=== PATIENT | female | born 1970 | race Caucasian/White ===

== ENCOUNTER → 2016-08-21 | Outpatient (CLI) | payer BC ==
[~2016-08-21] MED LIST: BNTUNK PO; SERT-234 PO; SPIR100T PO
--- NOTE | 2016-08-21 14:55 | MAMMOGRAPHY REPORT ---
ULTRASOUND OF RIGHT BREAST: 08/21/2016 CLINICAL HISTORY: 45-year-old woman with a palpable lump in the 12:00 to 1:00 right breast, thought t o correlate with a complicated cyst on ultrasound. She presents for follow-up. COMPARISON: Comparison is made to exams dated: 02/23/2016 mammogram, 02/23/2016 ultrasound, 6 mammogram, 03/17/2014 mammogram, 05/24/2011 mammogram, and 03/08/2010 ultrasound - [facility]. FINDINGS: Targeted ultrasound was performed in the 1:00 right breast in the area of palpable lump po inted out by the patient. The patient reports she can still feel the lump and it has not significant ly changed in size. On palpation, there is still a discrete BB sized mass. On ultrasound in the 1:0 0 right breast, 1 cm from the nipple, there is an oval parallel circumscribed hypoechoic solid versus cystic mass with thin internal echogenic septa and no significant increased vascularity. It measure s 3.1 x 2.1 x 2.7 mm. This has not significantly changed compared to the prior ultrasound at which t addie it measured 3.7 x 2.1 x 2.7 mm. This could represent a complicated cyst or possibly a lymph node . Given the stability and sonographic appearance it is most likely benign. However, another six-mon th follow-up targeted ultrasound is recommended to ensure at least one year of stability. Bilateral screening mammography will also be due at that time. IMPRESSION: ACR-BI-RADS CATEGORY 3: PROBABLY BENIGN - FOLLOW-UP RECOMMENDED The benign-appearing oval circumscribed hypoechoic solid versus cystic 3 mm palpable mass in the 1:00 right breast has not significantly changed in size or appearance since February 2016 and is most lik concepción benign. However, another six-month follow-up targeted ultrasound is recommend to ensure at least one year stability. Bilateral screening mammography will also be due at that time. These results and recommendations were discussed with the patient at the time of the exam. Nae Peña M.D. ay/:08/21/2016 12:17:52 Bankruptcy Manager: Dr. Nae Peña, [facility] letter sent: Follow Up Recommended 3 BI-RADS Code: ACR-BI-RADS Category 3: Probably Benign
== END | disposition home or self-care (01) ==
LOC: C.MAMM 10:22
PROVIDERS: ATTEND Physician Assistant
DX: Z09 Encounter for follow-up examination after completed treatment for conditions other than malignant neoplasm (principal); Z97.8 Presence of other specified devices